=== PATIENT | female | born 1945 ===

== ENCOUNTER 2025-06-07 10:02 | Outpatient (AMB) | payer MEDICARE, SELFPAY ==
--- OUTSIDE RECORDS SUMMARY | 2025-06-07 11:25 | XMS_ITS | Clinical Summary ---
Author Organization [address] [facility] Address [address] [place] [address] Phone Care Team Providers Care Family Life Educator Name Role Phone Americo Brantley MD Primary Care Provider [phone] Allergies Active Allergy Reactions Criticality Noted Date Comments Mold 02/13/2025 Medications OMEPRAZOLE ORAL Take 20 mg by mouth. 05/16/2018 Active levothyroxine (SYNTHROID, LEVOTHROID) 100 mcg tablet Take 1 tablet (100 mcg total) by mouth 1 (one) time each day. Active lisinopriL (PRINIVIL,ZESTR IL) 20 mg tablet Take 1 mg by mouth. Active metoprolol tartrate (LOPRESSOR) 25 mg tablet Take 1 mg by mouth. 05/16/2018 Active simvastatin (ZOCOR) 40 mg tablet Take 1 mg by mouth. 05/16/2018 Active amitriptyline (ELAVIL) 50 mg tablet Take 2 tablets (100 mg total) by mouth. at bedtime Active lisinopril-hydr oCHLOROthiazide (PRINZIDE,ZESTO RETIC) 20-25 mg per tablet Take 1 tablet by mouth 1 (one) time each day. Active Surgical History Surgery Date Site/Laterality Comments TOTAL KNEE ARTHROPLASTY PROCEDURE: [place] ARTHRP KNE CONDYLE&PLATU MEDIAL&LAT COMPARTMENTS KNEE ARTHROPLASTY TRIGGER FINGER RELEASE Medical History Medical History Date Comments Essential hypertension DX:Essent ial hypertension Hyperlipidemia DX:Hyperlipidemi a Esophageal reflux DX:Esophageal reflux Arthritis Social History Tobacco Use Types Packs/Day Years Used Date Smoking Tobacco: Never Smokeless Tobacco: Never Tobacco Cessation:Counseling Given: Not Answered Alcohol Use Standard Drinks/Week Comments Never 0 (1 standard drink = 0.6 oz pur e alcohol) Comments Unknown Sex and Gender Information Value Date Recorded Sex Assigned at Not on file Legal Sex Female 11:40 PM EST Gender Identity Not on file Sexual Orientation Not on file Obstetrics History Last Filed Vital Signs Vital Sign Reading Time Taken Comments Blood Pressure - - Pulse - - Temperature - - Respiratory Rate - - Oxygen Saturation - - Inhaled Oxygen Concentration - - Weight 72.6 kg (160 lb) 02/13/2025 2:55 PM EDT Height 157.5 cm (5' 2 ) 02/13/2025 2:55 PM EDT Body Mass Index 29.26 02/13/2025 2:55 PM EDT Plan of Treatment Health Maintenance Due Date Last Done Comments DTaP,Tdap,and Td Vaccines (1 - Tdap) 1964 Cholesterol Screening (Lipid Panel) 09/20/2022 Falls Risk Assessment 09/20/2022 Hepatitis C Screening 09/20/2022 Medicare Annual Wellness Visit 09/20/2022 Social Influencers of Health Screening 09/20/2022 Depression Screening 10/18/2024 COVID-19 Vaccine ( season) 2025 07/05/2024, 08/04/2023, 03/17/2023, Additional history exists Influenza Vaccine (#1) 2025 , 07/21/2023, 07/08/2022, Additional history exists Osteoporosis Screening (Bone Density Screening) 01/31/2034 02/01/2024, 12/19/2020 Pneumococcal Vaccine: 50+ Years Completed 06/24/2017, 08/27/2015 Zoster Vaccines Completed 03/17/2023, 11/19/2022 RSV Immunization Adult Patients Completed 07/21/2023 HIB Vaccines Aged Out No longer eligi ble based on patient's age to complete this topic HPV Vaccines Aged Out No longer eligi ble based on patient's age to complete this topic Hepatitis A Vaccines Aged Out No long er eligible based on patient's age to complete this topic Hepatitis B Vaccines Aged Out No long er eligible based on patient's age to complete this topic IPV Vaccines Aged Out No longer eligi ble based on patient's age to complete this topic MMR Vaccines Aged Out No longer eligi ble based on patient's age to complete this topic Meningococcal ACWY Vaccine Aged Out N o longer eligible based on patient's age to complete this topic Meningococcal B Vaccine Aged Out No l onger eligible based on patient's age to complete this topic RSV Immunization Patients Under 20 months Aged Out No longer eligible based on patient's age to complete this topic Varicella Vaccines Aged Out No longer eligible based on patient's age to complete this topic Procedures Procedure Name Priority Date/Time Associated Diagnosis Comments [facility] DEXA AXIAL SKELETON Routine 02/01/2024 7:56 AM EDT Encounter for screening for osteoporosis from Last 3 Months or Most Recently Relevant to Health Maintenance Results * [facility] DEXA AXIAL SKELETON (02/01/2024 7:56 AM EDT) Anatomical Region Laterality Modality Mammography 01/31/2024 1:47 PM EDT Narrative 02/01/2024 7:[address] [facility] Diagnostic Imaging Department [address] [place] [address] Patient: TOM MAX /Age/Sex: 1945 - 78 - F Unit#: [id number] Location/Status: SPDIMA/REG CLI [facility] Ordering Physician: AMERICO BRANTLEY MD [facility] Dexa Axial Skeleton - 01/31/24 - [id number] Report Status:Signed HISTORY: The patient is a 78-year-old postmenopausal female with clinical concern for metabolic bone disease. FINDINGS: Dual energy x-ray absorptiometry of the lumbar spine and femurs is performed. The mean bone mineral density at L1-2 is 1.128 gm/cm2 which is 97% of that of young normals and 115% of that of age matched controls. This yields a T- score of -0.3 and a Z-score of 1.2 and there is therefore no evidence of osteoporosis or osteopenia here. The mean bone mineral density of the femurs bilaterally is 0.786 gm/cm2 which is 78% of that of young normals and 98% of that of age matched controls. This yields a T-score of -1.8 and a Z-score of -0.1 and there is therefore no evidence of osteoporosis or osteopenia here. However, the T-score of the right femoral neck is -2.1 and that of the left femoral neck is -1.9 which is diagnostic of osteopenia. IMPRESSION: 1. Osteopenia. There has been a decrease of 3.3% in bone mineral density in the lumbar spine since the prior examination of 12/19/2020. There has been a decrease of 3.2% in bone mineral density in the right femur and a decrease of 7.2% in bone mineral density in the left femur. 2. FRAX analysis yields a 10-year probability of major osteoporotic fracture of 21.8% and a 10-year probability of hip fracture of 5.8%. Code 51778 Dictating Physician: ROSITA ROMERO MD Electronically Signed by: ROSITA ROMERO MD Dic Date/Time: 02/01/24 0754 Sign date/Time: 02/01/24 0756 Procedure Note Rosita Romero MD - 06/05/[address] [facility] Diagnostic Imaging Department [address] [place] [address] [id number] Patient: TOM MAX D.O.B./Age/Sex: 1945 - 78 - F Unit#: [id number] Location/Status: [facility] Ordering Physician: AMERICO BRANTLEY MD [facility] Dexa Axial Skeleton - 01/31/241421 Report Status:Signed HISTORY: The patient is a 78-year-old postmenopausal female withclinical concern for metabolic bone disease. FINDINGS: Dual energy x-ray absorptiometry of the lumbar spine and femursis performed. The mean bone mineral density at L1-2 is 1.128 gm/cm2 which is97% of that of young normals and 115% of that of age matched controls. Thisyields a T- score of -0.3 and a Z-score of 1.2 and there is therefore no evidence of osteoporosis or osteopenia here. The mean bone mineral density of the femurs bilaterally is 0.786 gm/te1gmjvz is 78% of that of young normals and 98% of that of age matched controls.This yields a T-score of -1.8 and a Z-score of -0.1 and there is therefore no evidence of osteoporosis or osteopenia here. However, the T-score of theright femoral neck is -2.1 and that of the left femoral neck is -1.9 which is diagnostic of osteopenia. IMPRESSION: 1. Osteopenia. There has been a decrease of 3.3% in bone mineral densityin the lumbar spine since the prior examination of 12/19/2020. There has lidia decrease of 3.2% in bone mineral density in the right femur and a decreaseof 7.2% in bone mineral density in the left femur. 2. FRAX analysis yields a 10-year probability of major osteoporoticfracture of 21.8% and a 10-year probability of hip fracture of 5.8%. Code 48867 Dictating Physician: ROSITA ROMERO MD Electronically Signed by: ROSITA ROMERO MD Dic Date/Time: 02/01/24 0754 Sign date/Time: 02/01/24 0756 Americo Brantley MD IMG BI PROCEDURES Final Result from Last 3 Months or Most Recently Relevant to Health Maintenance Insurance [facility] MEDICARE Advance Directives Documents on File Type Date Recorded Patient Diesel Truck Technician Expl anation Health Care Decision (hx) 07/23/2021 AD TAVERA DIRECTIVE Health Care Decision (hx) 07/23/2021 AD TAVERA DIRECTIVE Health Care Decision (hx) 07/23/2021 AD TAVERA DIRECTIVE Health Care Decision (hx) 07/23/2021 AD TAVERA DIRECTIVE Health Care Decision (hx) 07/23/2021 AD TAVERA DIRECTIVE Health Care Decision (hx) 07/23/2021 AD TAVERA DIRECTIVE Health Care Decision (hx) 07/23/2021 AD TAVERA DIRECTIVE Health Care Decision (hx) 07/23/2021 AD TAVERA DIRECTIVE Health Care Decision (hx) 07/22/2021 AD TAVERA DIRECTIVE Health Care Decision (hx) 07/22/2021 AD TAVERA DIRECTIVE Health Care Decision (hx) 07/22/2021 AD TAVERA DIRECTIVE Health Care Decision (hx) 07/22/2021 AD TAVERA DIRECTIVE Health Care Decision (hx) 07/22/2021 AD TAVERA DIRECTIVE Health Care Decision (hx) 07/22/2021 AD TAVERA DIRECTIVE Health Care Decision (hx) 07/22/2021 AD TAVERA DIRECTIVE Health Care Decision (hx) 07/22/2021 AD TAVREA DIRECTIVE Care Teams Family Life Educator Relationship Specialty Start Date End Date Americo Brantley MD [address] [place] [address] [address] [place], [place] PCP - General Geriatric Medicine 01/25/18
== END 2025-06-07 13:18 | disposition home or self-care (01) ==
LOC: HO.HMGAL 10:02
PROVIDERS: Visit Provider Registered Nurse Emergency
DX: J30.89 Other allergic rhinitis (principal)
CPT/HCPCS: 95117; 95165

== ENCOUNTER 2025-06-27 10:16 | Outpatient (AMB) | payer MEDICARE, SELFPAY | END 2025-06-27 10:43 | disposition home or self-care (01) | LOC: HO.HMGAL 10:16 | PROVIDERS: Visit Provider Registered Nurse Emergency | DX: J30.89 Other allergic rhinitis (principal) | CPT/HCPCS: 95117; 95165 ==

== ENCOUNTER 2025-07-25 14:40 | Outpatient (AMB) | payer MEDICARE, SELFPAY | END 2025-07-25 14:40 | disposition home or self-care (01) | LOC: HO.HMGAL 14:40 | PROVIDERS: PCP Internal Medicine; Visit Provider Registered Nurse Emergency | DX: J30.89 Other allergic rhinitis (principal) | CPT/HCPCS: 95117; 95165 ==

== ENCOUNTER 2025-08-22 14:03 | Outpatient (AMB) | payer MEDICARE, SELFPAY ==
--- OUTSIDE RECORDS SUMMARY | 2025-08-22 17:15 | XMS_ITS | Clinical Summary ---
Author Organization [address] [facility] Address [address] [place] [address] Phone Care Team Providers Care Collision Repair Technician Name Role Phone Americo Brantley MD Primary Care Provider [phone] Allergies Active Allergy Reactions Criticality Noted Date [...] Date Site/Laterality Comments TOTAL KNEE ARTHROPLASTY PROCEDURE: [place] ARTHRP KNE CONDYLE&PLATU MEDIAL&LAT COMPARTMENTS KNEE ARTHROPLASTY [...] Procedure Name Priority Date/Time Associated Diagnosis Comments [facility] DEXA AXIAL SKELETON Routine 02/01/2024 7:56 AM EDT Encounter for screening for osteoporosis from Last 3 Months or Most Recently Relevant to Health Maintenance Results * [facility] DEXA AXIAL SKELETON (02/01/2024 7:56 AM EDT) Anatomical Region Laterality Modality Mammography 01/31/2024 1:47 PM EDT Narrative 02/01/2024 7:56 AM EDT [facility] Diagnostic Imaging Department [address] [place] [address] Patient: TOM MAX /Age/Sex: 1945 - 78 - F Unit#: [id number] Location/Status: SPDIMA/REG CLI Mnemonic[facility] Ordering Physician: AMERICO BRANTLEY MD [facility] Dexa Axial Skeleton - 01/31/24 - [id number] Report Status:Signed HISTORY: The patient is a [...] probability of hip fracture of 5.8%. Code 29641 Dictating Physician: ROSITA ROMERO MD Electronically Signed by: ROSITA ROMERO MD Dic Date/Time: 02/01/24 0754 Sign date/Time: 02/01/24 0756 Procedure Note Rosita Romero MD - 06/05/2024 [facility] Diagnostic Imaging Department [address] [place] [address] [id number] Patient: TOM MAX D.O.B./Age/Sex: 1945 - 78 - F Unit#: [id number] Location/Status: [facility] Mnemonic[facility] Ordering Physician: AMERICO BRANTLEY MD Des Dexa [...] density of the femurs bilaterally is 0.786 gm/iv4lwmet is 78% of that of young normals [...] probability of hip fracture of 5.8%. Code 94560 Dictating Physician: ROSITA ROMERO MD Electronically Signed by: ROSITA ROMERO MD Dic Date/Time: 02/01/24 0754 Sign date/Time: 02/01/24 0756 Americo Brantley MD IMG BI PROCEDURES Final Result from Last 3 Months or Most Recently Relevant to Health Maintenance Insurance [facility] MEDICARE Advance Directives Documents on File Type Date Recorded Patient Salesperson Household Appliances Expl anation Health Care Decision (hx) 07/23/2021 [...] Care Decision (hx) 07/22/2021 AD TAVERA DIRECTIVE Care Teams Collision Repair Technician Relationship Specialty Start Date End Date Americo Brantley MD [address] [place] [address] [address] [place], [place] PCP - General Geriatric Medicine 01/25/18
== END 2025-08-22 14:04 | disposition home or self-care (01) ==
LOC: HO.HMGAL 14:03
PROVIDERS: PCP Internal Medicine; Visit Provider Registered Nurse Emergency
DX: J30.89 Other allergic rhinitis (principal)
CPT/HCPCS: 95117; 95165

== ENCOUNTER 2025-09-24 13:21 | Outpatient (AMB) | payer MEDICARE, SELFPAY | END 2025-09-24 13:22 | disposition home or self-care (01) | LOC: HO.HMGAL 13:21 | PROVIDERS: PCP Internal Medicine; Visit Provider Registered Nurse Emergency | DX: J30.89 Other allergic rhinitis (principal) | CPT/HCPCS: 95117; 95165 ==